=== PATIENT | female | born 1955 | race Caucasian/White ===

== ENCOUNTER 2016-10-07 10:43 | Inpatient (IN) | payer OTHER ==
[~2016-10-07] VITALS: Ht 160 cm; Wt 64.9 kg
--- NOTE | 2016-10-07 10:55 | NUR ---
PAIGE CAMACHO FROM [facility]: EATING CANNABIS COOKIE, LETHARGIC. SKIN IS WARM AND DRY. PLACED ON MONITOR. RESP IS EVEN AND UNLABORED WITH NAD NOTED. AWAITING MD FOR EVAL.
[2016-10-07 11:03] LABS: BASOPHILS % (AUTO) 0.6 % (0.0-2.0); EOSINOPHILS # (AUTO) 0.1 /CMM (0.0-0.7); EOSINOPHILS % (AUTO) 1.6 % (0.0-6.0); HEMATOCRIT 39 % (33-45); LYMPHOCYTES # (AUTO) 1.8 /CMM (0.8-4.8); LYMPHOCYTES % (AUTO) 26.3 % (20.0-44.0); MEAN CORPUSCULAR HEMOGLOBIN 29 PG (26.0-33.0); MEAN CORPUSCULAR HGB CONC 33 g/dl (31.0-36.0); MEAN CORPUSCULAR VOLUME 88 fL (82-100); MONOCYTES # (AUTO) 0.6 /CMM (0.1-1.30); MONOCYTES % (AUTO) 8.4 % (2.0-12.0); NEUTROPHILS # (AUTO) 4.2 /CMM (1.8-8.9); NEUTROPHILS % (AUTO) 63.1 % (43.0-81.0); PLATELET COUNT (AUTO) 293 /CMM (150-450); RDW COEFFICIENT OF VARIATION 16.8 (11.5-15.0); RED BLOOD CELL COUNT(AUTO) 4.48 MIL/uL (4.0-5.2); WHITE BLOOD COUNT (AUTO) 6.7 K/uL (4.3-11.0)
[2016-10-07 11:15] LABS: ALBUMIN 3.4 g/dL (3.4-5.0); BILIRUBIN,DIRECT 0.1 mg/dL (0.0-0.2); BILIRUBIN,TOTAL 0.3 mg/dL (0.2-1.0); CALCIUM, SERUM 9.7 mg/dL (8.5-10.1); POTASSIUM 4.2 mmol/L (3.5-5.1); TOTAL PROTEIN, SERUM 7.3 g/dL (6.4-8.2)
--- NOTE | 2016-10-07 11:30 | NUR ---
urine obtained sent to the lab.
--- NOTE | 2016-10-07 11:32 | NUR ---
URINE OBTAINED CALLED LAB FOR PICKUP
[2016-10-07 11:36] LABS: APPEARANCE,URINE Turbid (CLEAR); BLOOD, URINE Small Ery/uL (NEGATIVE); COLOR,URINE Yellow (YELLOW); KETONES,URINE Trace (NEGATIVE); LEUKOCYTE ESTERASE ,URINE Small (NEGATIVE); NITRITE, URINE Positive (NEGATIVE); PROTEIN,URINE 100 mg/dl (NEGATIVE); UGLUCOSE Negative (NEGATIVE)
[2016-10-07 11:39] LABS: BILIRUBIN,URINE SMALL (NEGATIVE)
[2016-10-07 11:45] LABS: ADD URINE CULTURE YES; BACTERIA,URINE Many /HPF (None Seen); RBC,URINE 0-2 /HPF (0-2); SQUAMOUS EPITHELIAL CELL,UR Moderate /HPF (None Seen); URINE AMORPHOUS URATE Few /HPF (None Seen); WBC,URINE 51-80 /HPF (0-3)
--- NOTE | 2016-10-07 12:17 | NUR ---
CALLED [facility], SPOKE WITH KEYON, TRANSFERRED CALL TO
--- NOTE | 2016-10-07 12:30 | NUR ---
Patient transported for CT head via gurney. Patient remains in stable condition at .
[2016-10-07] MEDS ORDERED: CEFTRIAXONE 1GM BAG (ER ONLY) 1 GM/50 ML PIGGYBACK IV ONE (13:00)
--- NOTE | 2016-10-07 14:15 | NUR ---
CALLED [facility], ASKED FOR KEYON, TRANSFERRED CALL TO
--- NOTE | 2016-10-07 14:18 | NUR ---
EPIC PAGED, SPECIAL WEAPONS UNIT OFFICER
--- NOTE | 2016-10-07 14:20 | NUR ---
CALLED NURSING SUP. FOR TELE BED
[2016-10-07] MEDS ORDERED: MULT-1168 PO (14:28)
--- NOTE | 2016-10-07 14:29 | NUR ---
Patient is resting comfortably in bed with eyes closed. Easily aroused. VSS PATIENT IS AAOX1
[2016-10-07] MEDS ORDERED: DOCU-25 PO (14:31)
[2016-10-07] MEDS ORDERED: FLUO40CA49 PO (14:31)
[2016-10-07] MEDS ORDERED: TIZA4TAB4 PO (14:31)
[2016-10-07] MEDS ORDERED: PREG100C PO (14:31)
[2016-10-07] MEDS ORDERED: WARF5TAB6 PO (14:31)
[2016-10-07] MEDS ORDERED: BACL20TA PO ×2 (14:31)
[2016-10-07] MEDS ORDERED: ALEN70TA45 PO (14:31)
[2016-10-07] MEDS ORDERED: PANT40TA4 PO (14:31)
--- NOTE | 2016-10-07 15:02 | NUR ---
REPORT GIVEN TO ISRA WISE FOR PRIETO TELE [phone]
--- NOTE | 2016-10-07 15:45 | NUR ---
TELE ADMIT FROM ER AFTER REPORT RECEIVED FROM BATSHEVA RN. PATIENT ORIENTED TO PRIMARY RN, UNIT, ROOM, BED, AND UNIT POLICIES REGARDING PATIENT CARE AND VISITING HOURS. PATIENT NOW ON CONTINUOUS TELEMETRY MONITORING. READING ON ARRIVAL IS SB 55. PT WEIGHED BY BED SCALE AND ENCOURAGED TO CALL IF SHE NEEDS ANYTHING. ALL QUESTIONS AND CONCERNS ADDRESSED, PATIENT VERBALIZED UNDERSTANDING.
[2016-10-07] MEDS ORDERED: ACETAMINOPHEN 325 MG TABLET PO PRN (16:00)
[2016-10-07] MEDS ORDERED: MAG HYDROX/AL HYDROX/SIMETH 30 ML UDC PO PRN (16:00)
[2016-10-07] MEDS ORDERED: MAGNESIUM HYDROXIDE 30 ML UDC PO PRN (16:00)
[2016-10-07] MEDS ORDERED: ONDANSETRON HCL/PF 4 MG/2 ML VIAL IVP PRN (16:00)
[2016-10-07] MEDS ORDERED: ZOLPIDEM TARTRATE 5 MG TABLET PO PRN (16:00)
[2016-10-07] MEDS ORDERED: Z GUARD REMEDY 2 OZ OINT TP PRN (16:00)
[2016-10-07] MEDS ORDERED: IV SET PRIMARY PUMP SET 1 EA INFUS.SET MC ONE (16:14)
[2016-10-07] MEDS: PREGABALIN 100 MG CAPSULE PO SCH (16:45)
[2016-10-07] MEDS: IV D5/0.45 NACL 1,000 ML IV PRN (16:45)
[2016-10-07] MEDS: ENOXAPARIN SODIUM 40 MG/0.4 ML DISP.SYRIN SQ SCH (16:49)
[2016-10-07 17:06] LABS: INR 1.74 (0.87-1.13); PROTHROMBIN TIME 19.3 SECS (9.5-12.7)
[2016-10-07 17:27] LABS: PHENCYCLIDINE SCREEN,URINE NEGATIVE (NEGATIVE)
[2016-10-07 17:44] LABS: CANNABINOID, URINE POSITIVE (NEGATIVE)
[2016-10-07] MEDS ORDERED: SECONDARY IV SET 1 EA INFUS.SET MC ONE (18:27)
[2016-10-07] MEDS: CEFTRIAXONE 1 G in IV D5W 50 ML IV SCH (18:32)
--- NOTE | 2016-10-07 18:39 | NUR ---
CHANGE OF SHIFT REPORT PT RESTING COMFORTABLY IN BED. NO S/S OR C/O PAIN OR DISTRESS NOTED. SIDE RAILS UP X2, CALL LIGHT LEFT WITHIN REACH. PT KEPT CLEAN, DRY, AND COMFORTABLE. NO SIGNIFICANT CHANGES SINCE ADMISSION. WILL GIVE REPORT TO GRAHAM DHALIWAL.
--- NOTE | 2016-10-07 19:10 | NUR ---
TELE/ENERGY SALES BROKER; RECEIVED PT. IN BED SLEEPING. BREATHING NON LABORED. WITH O2 2L NC ON. ON TELEMETRY. IVF ON PROGRESS ON LAC. FC INTACT WITH CLEAR YELLOW URINE IN TUBING. NO S/S OF DISTRESS. CONTINUE TO MONITOR. CALL LIGHT WITHIN REACH. BED ON LOWER POSITION AND LOCKED FOR SAFETY. SIDE RAILS ARE UP FOR SAFETY.
[2016-10-07 19:19] VITALS: BP 149/71
[2016-10-07 20:00] VITALS: BP 130/73
[2016-10-08] VITALS (7 sets, daily range): BP systolic 127–148; BP diastolic 73–93
[2016-10-08] MEDS: HYDROCODONE/APAP 5/325MG 1 EACH TABLET PO PRN (03:19)
[2016-10-08] MEDS: IV D5/0.45 NACL 1,000 ML IV PRN ×2 (05:45→17:35)
--- NOTE | 2016-10-08 05:54 | NUR ---
RN NOTES COVERING FOR YESIKA FORENSIC PSYCHOLOGIST: PATIENT COMPLAIN OF NAUSEA, ADMINISTERED ZOFRAN PRN ORDERED.
[2016-10-08 06:29] LABS: BASOPHILS % (AUTO) 0.8 % (0.0-2.0); EOSINOPHILS # (AUTO) 0.2 /CMM (0.0-0.7); EOSINOPHILS % (AUTO) 3.1 % (0.0-6.0); HEMATOCRIT 37 % (33-45); LYMPHOCYTES # (AUTO) 1.3 /CMM (0.8-4.8); LYMPHOCYTES % (AUTO) 21.3 % (20.0-44.0); MEAN CORPUSCULAR HEMOGLOBIN 29 PG (26.0-33.0); MEAN CORPUSCULAR HGB CONC 33 g/dl (31.0-36.0); MEAN CORPUSCULAR VOLUME 89 fL (82-100); MONOCYTES # (AUTO) 0.6 /CMM (0.1-1.30); MONOCYTES % (AUTO) 9.9 % (2.0-12.0); NEUTROPHILS % (AUTO) 64.9 % (43.0-81.0); PLATELET COUNT (AUTO) 271 /CMM (150-450); RDW COEFFICIENT OF VARIATION 16.4 (11.5-15.0); RED BLOOD CELL COUNT(AUTO) 4.14 MIL/uL (4.0-5.2); WHITE BLOOD COUNT (AUTO) 6.1 K/uL (4.3-11.0)
[2016-10-08 06:44] LABS: CALCIUM, SERUM 8.7 mg/dL (8.5-10.1); CREATININE 0.4 mg/dL (0.6-1.3); MAGNESIUM 1.8 mg/dL (1.8-2.4); PHOSPHORUS 3.9 mg/dL (2.5-4.9)
--- NOTE | 2016-10-08 07:00 | NUR ---
MS/BLEND PLANT OPERATOR; SLEPT SHORT INTERVALS. BREATHING NON LABORED. FC INTACT. WILL ENDORSE TO THE DAY SHIFT RN FOR PRIETO.
--- NOTE | 2016-10-08 07:30 | NUR ---
LIFE INSURANCE SALESPERSON AM NOTES PT. IN BED,AAO X 2, CONFUSED, WITH O2 2L NC, NAD NO SOB, ON TELEMETRY, SB HR 58, NO C/O PAIN OR CHEST DISCOMFORT. IVF IN PROGRESS ON LAC G20. FC INTACT WITH CLEAR YELLOW URINE OUTPUT, ADEQUATE. BED REST, SEE NURSING FLOWSHEET FOR SKIN ISSUES, CARDIAC DIET, CALL LIGHT WITHIN REACH. BED ON LOW/LOCKED. SIDE RAILS UPX 2, WILL CONT TO MONITOR. Addendum: 10/08/16 at 0811 by MARICARMEN ZEPEDA RN ADDENDUM: ON TELEMETRY, SB HR 57, DENIES CHEST PAIN/DISCOMFORT.
[2016-10-08] MEDS: DOCUSATE SODIUM 100 MG CAPSULE PO SCH (08:58)
[2016-10-08] MEDS: PREGABALIN 100 MG CAPSULE PO SCH ×3 (08:58→16:48)
[2016-10-08] MEDS: FLUOXETINE HCL 20 MG CAPSULE PO SCH (08:59)
[2016-10-08] MEDS: PANTOPRAZOLE 40 MG TABLET.DR PO SCH (08:59)
[2016-10-08] MEDS: WARFARIN SODIUM 5 MG TABLET PO SCH (09:01)
--- NOTE | 2016-10-08 09:30 | NUR ---
RN NOTES ADMINISTERED DUE MEDS.
[2016-10-08] MEDS: CEFTRIAXONE 1 G in IV D5W 50 ML IV SCH (16:48)
--- NOTE | 2016-10-08 16:48 | NUR ---
RN NOTES STARTED ROCEPHIN IV. INFUSING WELL.
--- NOTE | 2016-10-08 18:20 | NUR ---
RN CLOSING NOTES PT. RESTING IN BED, AAO X 2, CONFUSED, WITH O2 2L NC, NAD NO SOB, NO C/O PAIN OR CHEST DISCOMFORT. IVF IN PROGRESS ON LAC G20. FC INTACT WITH CLEAR YELLOW URINE OUTPUT, 1500 ML. BED REST, ON CARDIAC DIET, CALL LIGHT WITHIN REACH. BED ON LOW/LOCKED. SIDE RAILS UPX 2, ALL NEEDS MET. NO OTHER SIGNIFICANT CHANGE IN CONDITION. WILL ENDORSE TO NEXT SHIFT FOR PRIETO.
--- NOTE | 2016-10-08 19:30 | NUR ---
MS RN NOTE PATIENT AWAKE AND ALERT IN BED. DENIES ANY PAIN OR DISCOMFORT AT THIS TIME. MAIER CATHETER IN PLACE, WITH CLEAR YELLOW URINE DRAINING TO COLLECTION BAG. IV SITE INTACT WITH NO REDNESS NOTED. BED LOCKED AND IN LOWEST POSITION. WILL CONTINUE TO MONITOR.
[2016-10-08] MEDS: ENOXAPARIN SODIUM 40 MG/0.4 ML DISP.SYRIN SQ SCH (21:25)
--- NOTE | 2016-10-09 06:11 | NUR ---
MS RN NOTE PATIENT ASLEEP IN BED. NORMAL RISE AND FALL OF CHEST. NO DISCOMFORT NOTED. MAIER CATHETER INTACT, WITH 800ML OF CLEAR YELLOW URINE IN COLLECTION BAG. ALL NEEDS MET AND ATTENDED TO. WILL ENDORSE TO DAY SHIFT FOR PRIETO.
[2016-10-09 08:00] VITALS: BP 136/70
--- NOTE | 2016-10-09 08:00 | NUR ---
MS RN AM NOTES PATIENT AWAKE AND ALERT IN BED. DENIES ANY PAIN OR DISCOMFORT AT THIS TIME. MAIER CATHETER IN PLACE, WITH CLEAR YELLOW URINE DRAINING TO COLLECTION BAG. IV SITE INTACT WITH NO REDNESS NOTED WITH ONGOING IVF OF D51/2 NS AT 75 ML/HR INFUSING WELL. BED LOCKED AND IN LOWEST POSITION. WILL CONTINUE TO MONITOR.
[2016-10-09] MEDS: HYDROCODONE/APAP 5/325MG 1 EACH TABLET PO PRN (08:46)
[2016-10-09] MEDS: PANTOPRAZOLE 40 MG TABLET.DR PO SCH (08:46)
[2016-10-09] MEDS: DOCUSATE SODIUM 100 MG CAPSULE PO SCH (08:46)
[2016-10-09] MEDS: FLUOXETINE HCL 20 MG CAPSULE PO SCH (08:46)
[2016-10-09] MEDS: IV D5/0.45 NACL 1,000 ML IV PRN (09:15)
[2016-10-09] MEDS: PREGABALIN 100 MG CAPSULE PO SCH ×3 (09:17→17:00)
[2016-10-09] MEDS ORDERED: SULF1TAB48 PO (09:53)
--- NOTE | 2016-10-09 13:42 | NUR ---
WOUND CARE CONSULT: PT PRESENTS WITH PINK/RED AREAS TO RT ANTERIOR THIGH, PRESENT ON ADMISSION. NO BLISTERING OR DRAINAGE NOTED. SCAR NOTED TO RT HEEL. PT ON ISOFLEX LOW AIRLOSS BED. PT TO BE TURNED AND REPOSITIONED EVERY 2 HRS PT CONDITION PERMITS, HEELS FLOATED. TAHMINA SCORE IS 16. ALL SKIN PROTECTION MEASURES IN PLACE. WILL SEE PRN. MACDONALD IN AGREEMENT WITH PLAN OF CARE. Addendum: 10/09/16 at 1344 by PEGGY CALVO WNDNU Amended: Links added.
[2016-10-09 16:00] VITALS: BP_SYST 128; BP_DIAS 72; BP_DIAS 77
[2016-10-09] MEDS: CEFTRIAXONE 1 G in IV D5W 50 ML IV SCH (16:52)
--- NOTE | 2016-10-09 16:53 | NUR ---
ROCEPHIN NOT GIVEN-PT'S IV H/L WAS ALREADY BEEN REMOVED DUE TO BEING DISCHARGED.AWAITING FOR AMBULANCE ENGINEERING PROGRAM MANAGER BETWEEN 5-530PM.PT IS ON ORAL ATB UPON DISCHARGE.
[2016-10-09] MEDS: WARFARIN SODIUM 5 MG TABLET PO SCH (17:00)
--- NOTE | 2016-10-09 18:00 | NUR ---
PT IS FOR DISCHARGE AND STILL AWAITING FOR AMBULANCE TO BE PICKED UP.PT DENIES PAIN OR DISTRESS WITH STABLE V/S. ENDORSED TO NIGHT NURSE CARE.
--- NOTE | 2016-10-09 19:59 | NUR ---
MS RN NOTE PATIENT DISCHARGED TO [facility] IN STABLE CONDITION. TRANSPORTED BY AMBULANCE WITH ALL BELONGINGS. ID BAND AND IV REMOVED. ALL DISCHARGE INSTRUCTIONS EXPLAINED TO PATIENT. HARD COPY OF PRESCRIPTION GIVEN TO AMBULANCE PERSONELLE WITH ALL DISCHARGE PAPERS.
[2016-10-09 20:39] VITALS: BP 149/80
== END 2016-10-09 20:00 | DRG 917 ==
LOC: ER 10:46 → TELE 15:07 → MED 10-08 10:43
PROVIDERS: ADMIT Internal Medicine; ATTEND Internal Medicine
DX: T42.6X1A Poisoning by other antiepileptic and sedative-hypnotic drugs, accidental (unintentional), initial encounter (principal); G93.41 Metabolic encephalopathy; N39.0 Urinary tract infection, site not specified; Y92.122 Bedroom in nursing home as the place of occurrence of the external cause; G35 Multiple sclerosis; F12.20 Cannabis dependence, uncomplicated; K21.9 Gastro-esophageal reflux disease without esophagitis; Y92.9 Unspecified place or not applicable; B96.20 Unspecified Escherichia coli [E. coli] as the cause of diseases classified elsewhere; I10 Essential (primary) hypertension; Z99.3 Dependence on wheelchair
CPT/HCPCS: 36415; 70450-TC; 71010-TC; 80048-TC; 80061-TC; 80076-TC; 80305; 81000-TC; 83605-TC; 83735-TC; 84100-TC; 85025-TC; 85610-TC; 87040-TC; 87081-TC; 87086-TC; 87186-TC; A4606; J0696; J1650; J2405; J3490; J7060; Z7610

== ENCOUNTER 2017-06-22 14:53 | Inpatient (IN) | payer OTHER ==
[~2017-06-22] VITALS: Ht 157.5 cm; Wt 62.6 kg
[~2017-06-22 14:53] MED LIST: ALEN70TA45 PO; BACL20TA PO; DOCU-25 PO; FLUO40CA49 PO; MULT-1168 PO; PANT40TA4 PO; PREG100C PO; SULF1TAB48 PO; TIZA4TAB4 PO; WARF5TAB6 PO
--- NOTE | 2017-06-22 14:53 | NUR ---
BB PA FROM LONG-TERM C/O FEVER PER PT "SAME SYMPTOM MY PREVIOUS UTI". NAD NOTED. PT AAO X3, RR EVEN AND UNLABORED. BP LOW AT THIS TIME. PT PLACED TRENDELENBERG WITH MD AT BEDSIDE FOR EVAL.
[2017-06-22] MEDS ORDERED: PRAM0.253 PO (15:10)
[2017-06-22 15:20] LABS: BASOPHILS # (AUTO) 0.1 /CMM (0.0-0.2); BASOPHILS % (AUTO) 1.5 % (0.0-2.0); EOSINOPHILS % (AUTO) 0.2 % (0.0-6.0); HEMATOCRIT 37 % (33-45); HEMOGLOBIN 12.5 g/dL (11.5-14.8); LYMPHOCYTES # (AUTO) 0.8 /CMM (0.8-4.8); LYMPHOCYTES % (AUTO) 9.6 % (20.0-44.0); MEAN CORPUSCULAR HEMOGLOBIN 31 PG (26.0-33.0); MEAN CORPUSCULAR HGB CONC 34 g/dl (31.0-36.0); MEAN CORPUSCULAR VOLUME 90 fL (82-100); MONOCYTES # (AUTO) 0.6 /CMM (0.1-1.30); MONOCYTES % (AUTO) 7.4 % (2.0-12.0); NEUTROPHILS # (AUTO) 6.7 /CMM (1.8-8.9); NEUTROPHILS % (AUTO) 81.3 % (43.0-81.0); PLATELET COUNT (AUTO) 299 /CMM (150-450); RDW COEFFICIENT OF VARIATION 12.8 (11.5-15.0); WHITE BLOOD COUNT (AUTO) 8.2 K/uL (4.3-11.0)
[2017-06-22 15:30] LABS: CARBON DIOXIDE 29 mmol/L (21-32); CHLORIDE 96 mmol/L (98-107); CREATININE 0.5 mg/dL (0.6-1.3); GLUCOSE 117 mg/dL (74-106); POTASSIUM 3.8 mmol/L (3.5-5.1); SODIUM SERUM 131 mmol/L (136-145); UREA NITROGEN, BLOOD 8 mg/dL (7-18)
[2017-06-22] MEDS ORDERED: IV NS 0.9% 1,000 ML BAG IV ONE ×2 (15:30→16:30)
[2017-06-22 15:33] LABS: PROTHROMBIN TIME 48.1 SECS (9.5-12.7)
[2017-06-22 15:35] LABS: ALANINE AMINOTRANSFERASE 21 U/L (12-78); ALKALINE PHOSPHATASE 80 U/L (46-116); ASPARTATE AMINOTRANSFERASE 24 U/L (15-37); BILIRUBIN,DIRECT 0.1 mg/dL (0.0-0.2); BILIRUBIN,TOTAL 0.5 mg/dL (0.2-1.0)
[2017-06-22 15:37] LABS: INR 4.63 (0.87-1.13); TROPONIN I < 0.017 ng/mL (0.00-0.056)
[2017-06-22 16:07] LABS: APPEARANCE,URINE Turbid (CLEAR); BILIRUBIN,URINE Negative (NEGATIVE); BLOOD, URINE Large Ery/uL (NEGATIVE); COLOR,URINE Yellow (YELLOW); KETONES,URINE Negative (NEGATIVE); LEUKOCYTE ESTERASE ,URINE Large (NEGATIVE); NITRITE, URINE Positive (NEGATIVE); PH,URINE 7.5 (5.0-8.0); PROTEIN,URINE 30 mg/dl (NEGATIVE); UGLUCOSE Negative (NEGATIVE); UROBILINOGEN,URINE 0.2 EU/dL (0.2)
[2017-06-22 16:17] LABS: BACTERIA,URINE Moderate /HPF (None Seen); SQUAMOUS EPITHELIAL CELL,UR Few /HPF (None Seen); WBC,URINE 80-100 /HPF (0-3)
[2017-06-22] MEDS ORDERED: CEFTRIAXONE 1 G in IV D5W 50 ML IV ONE (16:30)
[2017-06-22] MEDS ORDERED: HYDROCODONE/APAP 10/325MG 1 EA TABLET PO PRN (17:00)
[2017-06-22] MEDS ORDERED: ONDANSETRON HCL/PF 4 MG/2 ML VIAL IVP PRN (17:00)
[2017-06-22] MEDS ORDERED: MAG HYDROX/AL HYDROX/SIMETH 30 ML UDC PO PRN (17:00)
[2017-06-22] MEDS ORDERED: MAGNESIUM HYDROXIDE 30 ML UDC PO PRN (17:00)
[2017-06-22] MEDS ORDERED: ENOXAPARIN SODIUM 40 MG/0.4 ML DISP.SYRIN SQ SCH (17:00)
[2017-06-22] MEDS ORDERED: TEMAZEPAM 15 MG CAPSULE PO PRN (17:00)
--- NOTE | 2017-06-22 17:21 | NUR ---
BP IMPROVED AT THIS TIME. VSS. PT STABLE
--- NOTE | 2017-06-22 18:10 | NUR ---
RN INITIAL NOTE PATIENT RECEIVED IN BED AWAKE, ALERT AND ORIENTED. ABLE TO MAKE NEEDS KNOWN. PATIENT IS SINUS RHYTHM ON TELE MONITOR. HEART RATE 76. NO S/S OF RESPIRATORY DISTRESS OR SOB. SATING WELL ON ROOM. SKIN IS WARM AND DRY TO TOUCH. IV SITE FLUSHED, PATENT. CALL LIGHT AND BELONGINGS WITHIN EASY REACH. WILL CONTINUE TO MONITOR.
[2017-06-22 18:15] VITALS: BP 150/87
[2017-06-22] MEDS: PRAMIPEXOLE DI-HCL 0.25 MG TABLET PO SCH (18:55)
[2017-06-22] MEDS: PREGABALIN 100 MG CAPSULE PO SCH (18:56)
[2017-06-22] MEDS: BACLOFEN (10 MG) 10 MG TABLET PO SCH (18:56)
[2017-06-22] MEDS: TIZANIDINE HCL 4 MG TABLET PO SCH (18:56)
--- NOTE | 2017-06-22 19:27 | NUR ---
TELE CLOSING NOTE PATIENT IS ALERT, ORIENTED X4, NO S/S OF DISTRESS NOTED, NO S/S OF PAIN NOTED, CALL LIGHT WITHIN REACH, ALL NEEDS ATTENDED
[2017-06-22 20:00] VITALS: BP 129/56
--- NOTE | 2017-06-22 20:00 | NUR ---
OSMANY RN NOTES RECEIVED PTS ON BED AWAKE ALERT ORIENTED X3 ON ROOM AIR SATING 95% ON TELE SR ON THE MONITOR, NO SOB NO DISTRESS NO C/O OF PAIN NOTED AT OF THIS TIME. V/S STABLE AFEBRILE, ALL NEEDS ATTENDED TOO , CALL LIGHT WITHIN REACH .ALL MEDS GIVEN ORDERED KEPT PTS CLEAN AND DRY AND COMFORTABLE, WILL CONTINUE TO MONITOR PTS.
[2017-06-22] MEDS: ACETAMINOPHEN 325 MG TABLET PO PRN (21:02)
[2017-06-23] VITALS: BP 138/72
--- NOTE | 2017-06-23 | NUR ---
OSMANY DHALIWAL NOTES PTS ON IVF OF NS AT 100CC/HR IN PROGRESS. IVF OF L WRIST INTACT AND PATENT. Addendum: 06/23/17 at 0456 by SHAGUFTA FLORES RN IV HL ON LEFT WRIST INTACT AND PATENT
[2017-06-23] MEDS: IV NS 0.9% 1,000 ML IV PRN ×3 (00:01→21:22)
[2017-06-23 04:00] VITALS: BP 160/77
--- NOTE | 2017-06-23 04:25 | NUR ---
OSMANY RN NOTES NORCO GIVEN C/O HEADACHE, WITH RELIEF
[2017-06-23] MEDS: HYDROCODONE/APAP 5/325MG 1 EACH TABLET PO PRN (04:29)
--- NOTE | 2017-06-23 06:51 | NUR ---
OSMANY RN NOTES PTS ON BED AWAKE AND RESPONSIVE , NO SIGNIFICANT CHANGED NOTED WILL ENDORSE TO RN DAY SHIFT FOR CONTINUITY OF CARE.
[2017-06-23 07:30] LABS: BASOPHILS % (AUTO) 0.5 % (0.0-2.0); EOSINOPHILS % (AUTO) 0.1 % (0.0-6.0); HEMATOCRIT 36 % (33-45); HEMOGLOBIN 12.4 g/dL (11.5-14.8); LYMPHOCYTES # (AUTO) 0.9 /CMM (0.8-4.8); MEAN CORPUSCULAR HEMOGLOBIN 31 PG (26.0-33.0); MEAN CORPUSCULAR HGB CONC 34 g/dl (31.0-36.0); MEAN CORPUSCULAR VOLUME 91 fL (82-100); MONOCYTES # (AUTO) 0.7 /CMM (0.1-1.30); MONOCYTES % (AUTO) 9.2 % (2.0-12.0); NEUTROPHILS # (AUTO) 6.1 /CMM (1.8-8.9); NEUTROPHILS % (AUTO) 78.2 % (43.0-81.0); PLATELET COUNT (AUTO) 248 /CMM (150-450); RDW COEFFICIENT OF VARIATION 13.5 (11.5-15.0); RED BLOOD CELL COUNT(AUTO) 3.99 MIL/uL (4.0-5.2); WHITE BLOOD COUNT (AUTO) 7.8 K/uL (4.3-11.0)
--- NOTE | 2017-06-23 07:37 | NUR ---
RN OPENING NOTE RECEIVED PATIENT IN BED, ALERT/ORIENTED, NO DISTRESS NOTED, PATIENT IS AWAKE. SIDE RAILS UP X 2, CALL LIGHT WITHIN REACH, WILL CONTINUE TO MONITOR
[2017-06-23 07:47] LABS: THYROID STIMULATING HORMONE 1.296 uIU/mL (0.358-3.74)
[2017-06-23 07:50] LABS: INR 3.12 (0.87-1.13); PROTHROMBIN TIME 32.8 SECS (9.5-12.7)
[2017-06-23 08:00] VITALS: BP 132/66
[2017-06-23 08:01] LABS: CALCIUM, SERUM 8.4 mg/dL (8.5-10.1); CREATININE 0.4 mg/dL (0.6-1.3); MAGNESIUM 1.8 mg/dL (1.8-2.4); PHOSPHORUS 2.5 mg/dL (2.5-4.9); POTASSIUM 3.2 mmol/L (3.5-5.1)
[2017-06-23] MEDS: FLUOXETINE HCL 20 MG CAPSULE PO SCH (08:48)
[2017-06-23] MEDS: PRAMIPEXOLE DI-HCL 0.25 MG TABLET PO SCH ×2 (08:48→17:40)
[2017-06-23] MEDS: BACLOFEN (10 MG) 10 MG TABLET PO SCH ×3 (08:49→17:40)
[2017-06-23] MEDS: DOCUSATE SODIUM 100 MG CAPSULE PO SCH (08:49)
[2017-06-23] MEDS: PREGABALIN 100 MG CAPSULE PO SCH ×3 (08:50→17:39)
[2017-06-23] MEDS: TIZANIDINE HCL 4 MG TABLET PO SCH ×3 (08:50→17:42)
[2017-06-23] MEDS: POTASSIUM CHLORIDE 20 MEQ TAB.PRT.SR PO SCH ×2 (12:06→12:25)
[2017-06-23] MEDS ORDERED: POTASSIUM CHLORIDE 20 MEQ TAB.PRT.SR PO ONE (12:30)
--- NOTE | 2017-06-23 13:45 | NUR ---
rn note Performed skin assessmen, no redness on the back (sacral area ) noted
[2017-06-23 16:00] VITALS: BP 136/70
[2017-06-23] MEDS: CEFTRIAXONE 1 G in IV D5W 50 ML IV SCH (17:39)
[2017-06-23] MEDS: WARFARIN SODIUM 5 MG TABLET PO SCH (17:41)
--- NOTE | 2017-06-23 19:20 | NUR ---
[employer] [employer] CLOSING NOTE PATIENT IS IN STABLE CONDITION. ALL NEEDS WERE MET. CALL LIGHT IS WITHIN REACH. IN NO APPARENT DISTRESS. PATIENT IS AWAKE. BEDSIDE RAILS ARE UP X2. BED IS LOCKED AND LOWERED. WILL ENDORSE CARE TO [employer] DRIVER NURSE .
[2017-06-23 19:51] VITALS: BP 126/63
--- NOTE | 2017-06-23 19:53 | NUR ---
MS 1 RN NOTE PT IN BED SUPINE, A/A/O X 3, NO SOB, NO DISTRESS OR DISCOMFORT NOTED. DENIES PAIN. IVF NS @ 100 ML/HR INFUSING WELL, NO S/S OF INFILTRATION NOTED ON LT WRIST #18 G. SITTER AT BED SIDE. SIDE RAILS UP X 2 AND CALL LIGHT WITHIN REACH. BED ALARM ON. CONTINUE TO MONITOR HER.
--- NOTE | 2017-06-24 01:35 | NUR ---
MS 1 RN NOTE PT C/O HEADACHE 09/29, TYLENOL 650 MG PO GIVEN. CONTINUE TO MONITOR HER.
[2017-06-24] MEDS: ACETAMINOPHEN 325 MG TABLET PO PRN ×2 (01:36→17:32)
--- NOTE | 2017-06-24 02:35 | NUR ---
MS 1 RN NOTE PT IN BED FALL ASLEEP, AROUSABLE. HEADACHE SUBSIDED 08/01. CONTINUE TO MONITOR HER.
[2017-06-24 05:03] VITALS: BP 146/77
--- NOTE | 2017-06-24 06:47 | NUR ---
MS 1 RN NOTE PT IN BED AWAKE. NO DISTRESS OR DISCOMFORT NOTED. SITTER AT BED SIDE. ALL NEEDS ATTENDED. SIDE RAILS UP X 3 AND CALL LIGHT WITHIN REACH. WILL ENDORSE TO DAY SHIFT NURSE FOR CONTINUE TO CARE.
[2017-06-24 07:23] LABS: INR 2.01 (0.87-1.13)
[2017-06-24] MEDS ORDERED: ALENDRONATE 70 MG TABLET PO SCH (07:30)
--- NOTE | 2017-06-24 07:30 | NUR ---
RN NOTE:(INITIAL) PATIENT RECEIVED IN STABLE CONDITION ALERT AWAKE ORIENTED X3. ON OXYGEN 2LPM VIA NC, BREATHING PATTERN REGULAR & UNLABORED. NO ACUTE DISTRESS NOTED.DENIES PAIN & DISCOMFORT. IV SITE INTACT, ABLE TO FLUSH WITHOUT DIFFICULTY. RUNNING WELL WITH IV FLUIDS ORDERED. MAIER CATHETER INTACT, DRAINING WELL WITH GRAVITY. SAFETY MEASURES OBSERVED. CALL LIGHT WITHIN REACH. WILL CONTINUE TO MONITOR.
[2017-06-24 07:35] LABS: CALCIUM, SERUM 8.6 mg/dL (8.5-10.1); CREATININE 0.3 mg/dL (0.6-1.3); POTASSIUM 3.6 mmol/L (3.5-5.1)
[2017-06-24 08:00] VITALS: BP 139/82
[2017-06-24] MEDS: PREGABALIN 100 MG CAPSULE PO SCH ×3 (08:27→17:24)
[2017-06-24] MEDS: TIZANIDINE HCL 4 MG TABLET PO SCH ×3 (08:27→17:24)
[2017-06-24] MEDS: BACLOFEN (10 MG) 10 MG TABLET PO SCH ×3 (08:27→17:24)
[2017-06-24] MEDS: PRAMIPEXOLE DI-HCL 0.25 MG TABLET PO SCH ×2 (08:27→17:24)
[2017-06-24] MEDS: DOCUSATE SODIUM 100 MG CAPSULE PO SCH (08:27)
[2017-06-24] MEDS: FLUOXETINE HCL 20 MG CAPSULE PO SCH (08:27)
[2017-06-24] MEDS: IV NS 0.9% 1,000 ML IV PRN (08:28)
[2017-06-24 16:00] VITALS: BP 142/72
[2017-06-24] MEDS: CEFTRIAXONE 1 G in IV D5W 50 ML IV SCH (17:23)
[2017-06-24] MEDS: WARFARIN SODIUM 5 MG TABLET PO SCH (17:25)
--- NOTE | 2017-06-24 18:30 | NUR ---
RN NOTE: PATIENT REMAIN STABLE DURING SHIFT. NO SIGNIFICANT CHANGES NOTED. SAFETY MEASURES OBSERVED. WILL ENDORSE TO PM SHIFT RN FOR CONTINUITY OF CARE.
[2017-06-24 20:00] VITALS: BP 142/74
[2017-06-25] MEDS: HYDROCODONE/APAP 5/325MG 1 EACH TABLET PO PRN ×2 (00:08→09:06)
[2017-06-25 04:00] VITALS: BP 149/74
--- NOTE | 2017-06-25 07:15 | NUR ---
RN NOTES RECEIVED PT ON BED, A/Ox4, RESPIRATION EVEN AND UNLABORED, TRISTON ANY DISTRESS, ON RA , MAIER DRAINING TO GRAVITY WITH YELLOW CLEAR URINE, L WRIST IV SIT G 18 , CDI, SR UP x3, CALL LIGHT WITHIN EASY REACH, BED LOCKED AND IN LOWEST POSITION , CONTINUE TO MONITOR PT CLOSELY.
[2017-06-25 08:00] VITALS: BP_SYST 159; BP_SYST 172; BP_DIAS 90; BP_DIAS 92
--- NOTE | 2017-06-25 08:56 | NUR ---
WOUND CARE CONSULT: PT PRESENTS WITH RT HEEL DEEP TISSUE INJURY WHICH IS INTACT AND LEFT HEEL SMALL DRY ESCHAR, PRESENT ON ADMISSION. PT REPORTS HAS HAD THESE HEEL WOUNDS FOR SOME TIME AND THAT THEY ARE TREATED BY HOME HEALTH. RECOMMENDATIONS MADE FOR SKIN PROTECTION AND DISCUSSED WITH NURSING STAFF. PT ON MARTIN ISOFLEX LOW AIRLOSS BED. WILL SEE PRN. MACDONALD IN AGREEMENT WITH PLAN OF CARE. Addendum: 06/25/17 at 0858 by PEGGY CALVO WNDNU Amended: Links added.
[2017-06-25] MEDS ORDERED: Z GUARD REMEDY 2 OZ OINT TP PRN (09:00)
[2017-06-25] MEDS: PRAMIPEXOLE DI-HCL 0.25 MG TABLET PO SCH ×2 (09:03→16:42)
[2017-06-25] MEDS: PREGABALIN 100 MG CAPSULE PO SCH ×3 (09:03→16:41)
[2017-06-25] MEDS: BACLOFEN (10 MG) 10 MG TABLET PO SCH ×3 (09:03→16:41)
[2017-06-25] MEDS: FLUOXETINE HCL 20 MG CAPSULE PO SCH (09:03)
[2017-06-25] MEDS: TIZANIDINE HCL 4 MG TABLET PO SCH ×3 (09:03→16:42)
[2017-06-25] MEDS: DOCUSATE SODIUM 100 MG CAPSULE PO SCH (09:04)
[2017-06-25] MEDS: IV NS 0.9% 1,000 ML IV PRN ×2 (10:21)
[2017-06-25 12:00] VITALS: BP 107/56
--- NOTE | 2017-06-25 15:00 | NUR ---
RN NOTES PT WANTS TO BE DISCHARGE WITH [facility] MAIER CREDIT PRODUCT ANALYST NOTIFIED , R WRIST H/L DISCONTINUED, DISCHARGE INSTRUCTION GIVEN , PT [id number] UNDERSTANDING , PT REFUSED TO HAVE HER SACRUM CHECKED , SHE STATED HAS NO SKIN ISSUE WITH HER BUTTOCKS.
[2017-06-25 16:00] VITALS: BP 141/69
[2017-06-25 16:11] LABS: INR 2.51 (0.87-1.13); PROTHROMBIN TIME 26.3 SECS (9.5-12.7)
[2017-06-25] MEDS: CEFTRIAXONE 1 G in IV D5W 50 ML IV SCH (16:41)
[2017-06-25] MEDS: WARFARIN SODIUM 5 MG TABLET PO SCH (16:42)
--- NOTE | 2017-06-25 18:59 | NUR ---
RN NOTES REPORT GIVEN TO EMT PERSONAL ,PT LEFT THE FLOOR TO MAIN ENTRANCE ACCOMPANIED BY EMT IN STABLE .
== END 2017-06-25 18:52 | DRG 872 ==
LOC: ER 14:53 → TELE-TD 17:45 → MEDSG1 06-23 11:16
PROVIDERS: ADMIT Nurse Practitioner Acute Care; ATTEND Nurse Practitioner Acute Care
DX: A41.9 Sepsis, unspecified organism (principal); D68.59 Other primary thrombophilia; G20 Parkinson's disease; E87.1 Hypo-osmolality and hyponatremia; G35 Multiple sclerosis; I95.9 Hypotension, unspecified; N39.0 Urinary tract infection, site not specified; B96.20 Unspecified Escherichia coli [E. coli] as the cause of diseases classified elsewhere; E86.1 Hypovolemia; E78.5 Hyperlipidemia, unspecified; E87.6 Hypokalemia; G89.4 Chronic pain syndrome; F32.9 Major depressive disorder, single episode, unspecified; I10 Essential (primary) hypertension; K21.9 Gastro-esophageal reflux disease without esophagitis; M81.0 Age-related osteoporosis without current pathological fracture; Z79.01 Long term (current) use of anticoagulants; Z79.899 Other long term (current) drug therapy; Z86.718 Personal history of other venous thrombosis and embolism; Z87.440 Personal history of urinary (tract) infections; Z74.01 Bed confinement status
CPT/HCPCS: 36415; 71010-TC; 80048-TC; 80061-TC; 80076-TC; 80305; 81000-TC; 83605-TC; 83735-TC; 84100-TC; 84443-TC; 84484-TC; 85025-TC; 85610-TC; 85730-TC; 87040-TC; 87081-TC; 87086-TC; 87186-TC; A4606; J0696; J2405; J7030; J7060; Z7610

== ENCOUNTER 2018-01-03 23:14 | Inpatient (IN) | payer MEDICARE, MEDICAID ==
[~2018-01-03] VITALS: Ht 157.5 cm; Wt 54.9 kg
[~2018-01-03 23:14] MED LIST changes: +DOCU-141 PO; -DOCU-25 PO; -MULT-1168 PO; -PANT40TA4 PO; +PRAM0.253 PO; -SULF1TAB48 PO; +WARF-58 PO; -WARF5TAB6 PO
--- NOTE | 2018-01-03 23:28 | NUR ---
62 YO FEMALE BB SELF. PATIENT IS ALERT AND ORIENTED. PATIENT C/O FEELING WEAK, POOR APPITITE, PATIENT THINKS IT MAY BE A UTI. PATIENT DS TO ER BED, SKIN WARM AND DRY, RESP EVEN AND UNLABORED. PATIENT GOWNED, ON FLOAT REMOVER. AWAITING ORDERS FROM PROVIDER
[2018-01-03] MEDS ORDERED: ONDANSETRON HCL/PF 4 MG/2 ML VIAL ONE (23:55)
[2018-01-04] MEDS ORDERED: ONDANSETRON HCL/PF 4 MG/2 ML VIAL IVP ONE
[2018-01-04 00:08] LABS: BASOPHILS % (AUTO) 0.2 % (0.0-2.0); EOSINOPHILS % (AUTO) 1.3 % (0.0-6.0); HEMATOCRIT 37 % (33-45); HEMOGLOBIN 12.9 g/dL (11.5-14.8); LYMPHOCYTES # (AUTO) 1.2 /CMM (0.8-4.8); LYMPHOCYTES % (AUTO) 20.5 % (20.0-44.0); MEAN CORPUSCULAR HGB CONC 35 g/dl (31.0-36.0); MEAN CORPUSCULAR VOLUME 90 fL (82-100); MONOCYTES # (AUTO) 0.4 /CMM (0.1-1.30); MONOCYTES % (AUTO) 7.7 % (2.0-12.0); NEUTROPHILS % (AUTO) 70.3 % (43.0-81.0); PLATELET COUNT (AUTO) 431 /CMM (150-450); RDW COEFFICIENT OF VARIATION 13.9 (11.5-15.0); RED BLOOD CELL COUNT(AUTO) 4.11 MIL/uL (4.0-5.2); WHITE BLOOD COUNT (AUTO) 5.7 K/uL (4.3-11.0)
[2018-01-04 00:24] LABS: CALCIUM, SERUM 9.4 mg/dL (8.5-10.1); CREATININE 0.4 mg/dL (0.6-1.3); POTASSIUM 3.7 mmol/L (3.5-5.1)
[2018-01-04 00:29] LABS: ALBUMIN 3.6 g/dL (3.4-5.0); BILIRUBIN,DIRECT 0.1 mg/dL (0.0-0.2); BILIRUBIN,TOTAL 0.5 mg/dL (0.2-1.0); TOTAL PROTEIN, SERUM 7.8 g/dL (6.4-8.2)
[2018-01-04] MEDS ORDERED: IV NS 0.9% 1,000 ML BAG IV ONE (00:30)
[2018-01-04 00:57] LABS: INR 1.01 (0.87-1.13)
[2018-01-04 01:09] LABS: APPEARANCE,URINE SL CLOUDY (CLEAR); BILIRUBIN,URINE NEGATIVE (NEGATIVE); BLOOD, URINE 2+ Ery/uL (NEGATIVE); COLOR,URINE YELLOW (YELLOW); KETONES,URINE 1+ (NEGATIVE); LEUKOCYTE ESTERASE ,URINE 2+ (NEGATIVE); NITRITE, URINE NEGATIVE (NEGATIVE); PROTEIN,URINE NEGATIVE (NEGATIVE); UGLUCOSE NEGATIVE (NEGATIVE); UROBILINOGEN,URINE 0.2 EU/dL (0.2)
[2018-01-04 01:28] LABS: BACTERIA,URINE Many /HPF (None Seen); SQUAMOUS EPITHELIAL CELL,UR Few /HPF (None Seen)
[2018-01-04] MEDS ORDERED: PIPERACILLIN /TAZOBACTAM 3.375 G VIAL IV ONE (01:53)
[2018-01-04] MEDS ORDERED: TEMAZEPAM 7.5 MG CAPSULE PO PRN (02:00)
[2018-01-04] MEDS ORDERED: PIPERACILLIN /TAZOBACTAM 3.375 G in IV D5W 50 ML IV ONE ×2 (02:00→02:15)
[2018-01-04] MEDS ORDERED: MAGNESIUM HYDROXIDE 30 ML UDC PO PRN (02:00)
[2018-01-04] MEDS ORDERED: HYDROCODONE/APAP 5/325MG 1 EACH TABLET PO PRN (02:00)
[2018-01-04] MEDS ORDERED: MAG HYDROX/AL HYDROX/SIMETH 30 ML UDC PO PRN (02:00)
[2018-01-04] MEDS ORDERED: ACETAMINOPHEN 325 MG TABLET PO PRN (02:00)
[2018-01-04] MEDS ORDERED: ONDANSETRON HCL/PF 4 MG/2 ML VIAL IVP PRN (02:00)
[2018-01-04 02:05] VITALS: BP 134/64
[2018-01-04] MEDS ORDERED: IV NS 0.9% 1,000 ML IV PRN (03:00)
[2018-01-04 05:01] VITALS: BP_SYST 134; BP_SYST 145; BP_DIAS 64; BP_DIAS 97
[2018-01-04] MEDS ORDERED: CEFTRIAXONE 1 G VIAL ONE (05:44)
[2018-01-04] MEDS: CEFTRIAXONE 1 G in IV D5W 50 ML IV SCH (05:48)
--- NOTE | 2018-01-04 06:38 | NUR ---
DREDGING INSPECTOR NOTES AWAKE & RESPONSIVE. NOT IN ANY DISTRESS. NO SOB NOTED. DENIES ANY PAIN OR DISCOMFORT AT THIS TIME. ON TELE SR @ 79 WITH IVF INFUSING WELL. AM CARE DONE. MONITORED ACCORDINGLY. CALL LIGHT WITHIN REACH. BED IN LOWEST POSITION. SR UP X 3 FOR SAFETY. WILL ENDORSE TO NEXT SHIFT.
[2018-01-04 06:48] LABS: MAGNESIUM 1.9 mg/dL (1.8-2.4); PHOSPHORUS 3.6 mg/dL (2.5-4.9)
[2018-01-04] MEDS ORDERED: FURO20TA4 PO (07:57)
[2018-01-04] MEDS ORDERED: RIVA10TA PO (07:57)
[2018-01-04] MEDS ORDERED: BACL20TA PO (07:57)
[2018-01-04] MEDS ORDERED: HYDR12.5 PO (07:57)
[2018-01-04] MEDS ORDERED: ZOLP10TA6 PO (07:58)
[2018-01-04 08:00] VITALS: BP 145/91
--- NOTE | 2018-01-04 08:10 | NUR ---
RN NOTES PATIENT A/OX4, BREATHING EVEN AND UNLABORED, NO DISTRESS NOTED, DENIES PAIN AT THIS TIME, NEEDS ATTENDED AND MET, CALL LIGHT WITHIN REACH, WILL CONTINUE TO MONITOR.
[2018-01-04] MEDS: PANTOPRAZOLE 40 MG VIAL IV SCH (08:49)
[2018-01-04] MEDS ORDERED: ONDANSETRON 4 MG TAB.RAPDIS PO PRN (09:30)
[2018-01-04] MEDS: GLUCERNA SHAKE 237 ML CAN PO SCH ×2 (13:50→16:42)
--- NOTE | 2018-01-04 15:43 | NUR ---
RN NOTES PATIENT AND JOYCE OWEN DISCUSSED CODE STATUS AND PATIENT REQUESTED TO BE DNR/DNI. CODE STATUS ORDERED. PATIENT TURNED AND REPOSITIONED, OFFLOADED BILATERAL HEELS. ON IVF AND ONGOING AND TOLERATING WELL, PATIENT SEEN BY DR. GALLEGO CLUTCH INSPECTOR. NEEDS ATTENDED AND MET, CALL LIGHT WITHIN REACH, WILL CONTINUE TO MONITOR.
[2018-01-04 16:00] VITALS: BP 154/87
[2018-01-04] MEDS: CLOTRIMAZOLE 1% 15 GM TUBE TP SCH (16:42)
[2018-01-04] MEDS ORDERED: Z GUARD REMEDY 2 OZ OINT TP PRN (17:00)
[2018-01-04] MEDS: PRAMIPEXOLE DI-HCL 0.25 MG TABLET PO SCH (17:38)
[2018-01-04] MEDS: TIZANIDINE HCL 4 MG TABLET PO SCH (17:38)
[2018-01-04] MEDS: PREGABALIN 100 MG CAPSULE PO SCH (17:38)
[2018-01-04] MEDS: RIVAROXABAN 10 MG TABLET PO SCH (17:43)
[2018-01-04] MEDS ORDERED: BACLOFEN (10 MG) 10 MG TABLET PO SCH ×2 (18:00→22:00)
--- NOTE | 2018-01-04 18:14 | NUR ---
RN NOTES PATIENT A/OX4, NO DISTRESS NOTED, HOME MEDICATIONS REVIEWED BY JOYCE OWEN NP. MEDICATIONS GIVEN ORDERED, PIV ON LEFT HAND WITH NS @ 50ML/HR INFUSING. MAIER CATH DRAINING WITH YELLOW URINE. TREATMENT ON BOTH FEET DONE, TURNED AND REPOSITIONED EVERY 2 HOURS, KEPT SKIN CLEAN AND DRY, ORDERED Z-GUARD FOR SKIN MANAGEMENT. ALL NEEDS ATTENDED AND MET, CALL LIGHT WITHIN REACH, WILL ENDORSE TO RENAL SOCIAL WORKER FOR PRIETO.
--- NOTE | 2018-01-04 19:24 | NUR ---
MS RN NOTES: RECEIVED PT IN BED AND IS AWAKE. PT IS A/OX4. PT IS ON ROOM AIR. PT HAS IV ON L HAND AND IS BEING INFUSED WITH NS AT 50ML/HR. PT HAS F/C AND IS ATTACHED TO DRAINAGE BAG WITH YELLOW URINE DRAINING. CALL LIGHT WITHIN PT'S REACH. BED KEPT IN LOW, LOCKED POSITION, AND SIDE RAILS X 2UP. WILL CONTINUE TO MONITOR PT.
[2018-01-04 20:00] VITALS: BP 147/92
[2018-01-04] MEDS: IV NS 0.9% 1,000 ML IV PRN (21:06)
--- NOTE | 2018-01-04 23:08 | NUR ---
MS RN NOTES: JASON DIAZ ON FLOOR. INFORMED HIM THAT UPON GIVING PT BACLOFEN 10MG EARLIER TONIGHT, SHE SAID THAT SHE TAKES 60MG AT NIGHT. PER FABIANO DIAZ, OK TO GIVE BACLOFEN 60MG TOMORROW NIGHT.
[2018-01-04] MEDS: ZOLPIDEM TARTRATE 10 MG TABLET PO PRN (23:09)
--- NOTE | 2018-01-04 23:09 | NUR ---
MS RN NOTES: PT REQUESTED FOR AMBIEN 10MG. PT WAS ADMINISTERED 10MG PO. WILL CONTINUE TO MONITOR PT.
[2018-01-05] MEDS ORDERED: CEFTRIAXONE 1 G VIAL ONE (04:39)
[2018-01-05] MEDS: CEFTRIAXONE 1 G in IV D5W 50 ML IV SCH (04:43)
--- NOTE | 2018-01-05 06:22 | NUR ---
MS RN CLOSING NOTES: ALL NEEDS WERE ATTENDED AND ANTICIPATED FOR. PT KEPT CLEAN, DRY, AND COMFORTABLE. PT ON ROOM AIR AND TOLERATING WELL. PT RESTING IN BED COMFORTABLY. IV REMAINS INTACT AND IS BEING INFUSED WITH IV NS 50ML/HR. CALL LIGHT WITHIN PT'S REACH. BED KEPT IN LOW, LOCKED POSITION, AND SIDE RAILS X 2UP. WILL ENDORSE TO AM NURSE FOR PRIETO.
[2018-01-05 06:35] LABS: BASOPHILS % (AUTO) 0.4 % (0.0-2.0); EOSINOPHILS % (AUTO) 1.3 % (0.0-6.0); HEMATOCRIT 36 % (33-45); HEMOGLOBIN 12.2 g/dL (11.5-14.8); LYMPHOCYTES # (AUTO) 2.1 /CMM (0.8-4.8); MEAN CORPUSCULAR HGB CONC 34 g/dl (31.0-36.0); MEAN CORPUSCULAR VOLUME 92 fL (82-100); MONOCYTES # (AUTO) 0.6 /CMM (0.1-1.30); MONOCYTES % (AUTO) 10.6 % (2.0-12.0); NEUTROPHILS % (AUTO) 51.7 % (43.0-81.0); PLATELET COUNT (AUTO) 376 /CMM (150-450); RDW COEFFICIENT OF VARIATION 13.8 (11.5-15.0); RED BLOOD CELL COUNT(AUTO) 3.93 MIL/uL (4.0-5.2); WHITE BLOOD COUNT (AUTO) 5.8 K/uL (4.3-11.0)
[2018-01-05 06:58] LABS: CALCIUM, SERUM 8.7 mg/dL (8.5-10.1); CREATININE 0.3 mg/dL (0.6-1.3); POTASSIUM 3.3 mmol/L (3.5-5.1)
[2018-01-05 07:00] LABS: THYROID STIMULATING HORMONE 1.464 uIU/mL (0.358-3.74)
[2018-01-05 08:00] VITALS: BP 166/98
[2018-01-05] MEDS ORDERED: BISACODYL SUPP (10 MG) 10 MG/SUPP.RECT SUPP.RECT RC ONE (10:00)
[2018-01-05] MEDS ORDERED: POTASSIUM CHLORIDE 20 MEQ TAB.PRT.SR PO ONE (10:00)
[2018-01-05] MEDS: PANTOPRAZOLE 40 MG VIAL IV SCH (10:49)
[2018-01-05] MEDS: FLUOXETINE HCL 20 MG CAPSULE PO SCH (10:49)
[2018-01-05] MEDS: BACLOFEN (10 MG) 10 MG TABLET PO SCH (10:50)
[2018-01-05] MEDS: DOCUSATE SODIUM 100 MG CAPSULE PO SCH ×2 (10:50→18:31)
[2018-01-05] MEDS: TIZANIDINE HCL 4 MG TABLET PO SCH ×2 (10:50→18:31)
[2018-01-05] MEDS: MULTIVITAMINS,THERAGRAN 1 UDTAB TABLET PO SCH (10:51)
[2018-01-05] MEDS: PRAMIPEXOLE DI-HCL 0.25 MG TABLET PO SCH ×2 (10:54→18:31)
[2018-01-05] MEDS: GLUCERNA SHAKE 237 ML CAN PO SCH ×3 (10:54→18:35)
[2018-01-05] MEDS: PREGABALIN 100 MG CAPSULE PO SCH ×2 (10:54→18:35)
[2018-01-05] MEDS: CLOTRIMAZOLE 1% 15 GM TUBE TP SCH ×2 (11:11→18:30)
[2018-01-05] MEDS: Z GUARD REMEDY 2 OZ OINT TP SCH (11:14)
[2018-01-05 16:00] VITALS: BP 134/86
[2018-01-05] MEDS ORDERED: BACLOFEN (10 MG) 10 MG TABLET PO SCH (18:00)
--- NOTE | 2018-01-05 18:00 | NUR ---
NO PRNS GIVEN PT. STATUS QUO.VS STABLE.
[2018-01-05] MEDS: RIVAROXABAN 10 MG TABLET PO SCH (18:32)
--- NOTE | 2018-01-05 19:00 | NUR ---
MS RN INITIAL NOTES: Patient received in bed, sitting up. Alert, oriented x 4. Breathing even and unlabored. not in distress. no complaints of discomfort as of this time. Peripheral IV infusing well. Folr=ey cath in place, draining clear, yellow urine. Call العراقي within reach. Bed in low locked position. Patient stable as endorsed by the third shift lieutenant RN.
[2018-01-05 20:00] VITALS: BP 140/90
[2018-01-05 20:21] VITALS: BP 140/90
[2018-01-05] MEDS: ZOLPIDEM TARTRATE 10 MG TABLET PO PRN (23:23)
--- NOTE | 2018-01-05 23:25 | NUR ---
MS RN NOTES: Patient requested ambien to help her sleep; given as ordered
[2018-01-06] MEDS: IV NS 0.9% 1,000 ML IV PRN (02:24)
[2018-01-06] MEDS: CEFTRIAXONE 1 G in IV D5W 50 ML IV SCH (04:07)
--- NOTE | 2018-01-06 06:39 | NUR ---
MS RN NOTES: Patient sitting up in bed; alert, oriented x 4. Breathing even and unlabored. Not in any distress. Peripheral IV fluid infusing at 50mL/hr. Cr catheter in place, draining 800mL of clear, yellow urine. No complaints of pain or discomfort. All needs attended to. All due medications given. Will endorse continuity of care to morning shift RN.
[2018-01-06 06:50] LABS: BASOPHILS # (AUTO) 0.1 /CMM (0.0-0.2); BASOPHILS % (AUTO) 1.1 % (0.0-2.0); HEMATOCRIT 35 % (33-45); LYMPHOCYTES # (AUTO) 1.9 /CMM (0.8-4.8); MEAN CORPUSCULAR HGB CONC 34 g/dl (31.0-36.0); MEAN CORPUSCULAR VOLUME 92 fL (82-100); MONOCYTES # (AUTO) 0.6 /CMM (0.1-1.30); MONOCYTES % (AUTO) 11.1 % (2.0-12.0); NEUTROPHILS # (AUTO) 2.4 /CMM (1.8-8.9); NEUTROPHILS % (AUTO) 47.8 % (43.0-81.0); PLATELET COUNT (AUTO) 378 /CMM (150-450); RDW COEFFICIENT OF VARIATION 14.1 (11.5-15.0); RED BLOOD CELL COUNT(AUTO) 3.84 MIL/uL (4.0-5.2); WHITE BLOOD COUNT (AUTO) 5.1 K/uL (4.3-11.0)
[2018-01-06 06:58] LABS: CALCIUM, SERUM 8.9 mg/dL (8.5-10.1); CREATININE 0.3 mg/dL (0.6-1.3); POTASSIUM 3.4 mmol/L (3.5-5.1)
[2018-01-06] MEDS: PANTOPRAZOLE 40 MG VIAL IV SCH (07:30)
[2018-01-06] MEDS ORDERED: ALENDRONATE 70 MG TABLET PO SCH (07:30)
[2018-01-06 08:00] VITALS: BP 166/97
[2018-01-06] MEDS: DOCUSATE SODIUM 100 MG CAPSULE PO SCH ×2 (08:29→16:41)
[2018-01-06] MEDS: CLOTRIMAZOLE 1% 15 GM TUBE TP SCH ×2 (08:30→16:53)
[2018-01-06] MEDS: GLUCERNA SHAKE 237 ML CAN PO SCH ×3 (08:30→16:54)
[2018-01-06] MEDS: Z GUARD REMEDY 2 OZ OINT TP SCH (08:30)
[2018-01-06] MEDS: PREGABALIN 100 MG CAPSULE PO SCH ×2 (08:30→16:41)
[2018-01-06] MEDS: TIZANIDINE HCL 4 MG TABLET PO SCH ×2 (08:30→16:41)
[2018-01-06] MEDS: FLUOXETINE HCL 20 MG CAPSULE PO SCH (08:30)
[2018-01-06] MEDS: BACLOFEN (10 MG) 10 MG TABLET PO SCH (08:30)
[2018-01-06] MEDS: MULTIVITAMINS,THERAGRAN 1 UDTAB TABLET PO SCH (08:30)
[2018-01-06] MEDS: PRAMIPEXOLE DI-HCL 0.25 MG TABLET PO SCH ×2 (08:30→16:41)
[2018-01-06] MEDS ORDERED: CEPH-570 PO (09:55)
[2018-01-06] MEDS ORDERED: DOCU-141 PO (09:55)
[2018-01-06] MEDS ORDERED: POTASSIUM CHLORIDE 20 MEQ TAB.PRT.SR PO ONE (10:00)
[2018-01-06 16:00] VITALS: BP 142/83
[2018-01-06] MEDS: RIVAROXABAN 10 MG TABLET PO SCH (16:53)
--- NOTE | 2018-01-06 17:39 | NUR ---
RN NOTES PT WAS DISCHARGED TO [facility] ST[facility] CONDITION. PT WAS GIVEN DISCHARGED INSTRUCTIONS AND EDUCATION. PT WAS GIVEN NEW PRESCRIPTION AND TOLD TO FOLLOW UP WITH PCP WITHIN 1-2 WEEKS OF DISCHARGE. PT VERBALIZED UNDERSTANDING AND STATED SHE ALREADY HAS AN APPOINTMENT WITH HER PCP. IV AND ID BAND WERE REMOVED AND BELONGINGS WERE RETURNED TO PT. DISCHARGE PAPERS WERE SIGNED BY PT AND EMT WAS GIVEN REPORT BEFORE TRANSPORTING PT TO FACILITY.
== END 2018-01-06 18:00 | DRG 690 ==
LOC: ER 23:17 → TELE 01-04 02:02 → MED 01-04 08:27
PROVIDERS: ADMIT Nurse Practitioner Acute Care; ATTEND Nurse Practitioner Acute Care
DX: N39.0 Urinary tract infection, site not specified (principal); E87.1 Hypo-osmolality and hyponatremia; K21.9 Gastro-esophageal reflux disease without esophagitis; I10 Essential (primary) hypertension; G89.4 Chronic pain syndrome; B96.20 Unspecified Escherichia coli [E. coli] as the cause of diseases classified elsewhere; E87.6 Hypokalemia; G35 Multiple sclerosis; K59.00 Constipation, unspecified; M81.0 Age-related osteoporosis without current pathological fracture; Z86.718 Personal history of other venous thrombosis and embolism; Z87.440 Personal history of urinary (tract) infections; R32 Unspecified urinary incontinence; B35.1 Tinea unguium; S90.32XA Contusion of left foot, initial encounter; S90.31XA Contusion of right foot, initial encounter; X58.XXXA Exposure to other specified factors, initial encounter; Y93.9 Activity, unspecified; Y92.89 Other specified places as the place of occurrence of the external cause; S90.122A Contusion of left lesser toe(s) without damage to nail, initial encounter; B35.9 Dermatophytosis, unspecified; T50.2X5A Adverse effect of carbonic-anhydrase inhibitors, benzothiadiazides and other diuretics, initial encounter; R53.1 Weakness; Z99.3 Dependence on wheelchair
CPT/HCPCS: 36415; 71045-TC; 74018; 80048-TC; 80061-TC; 80076-TC; 81000-TC; 82746; 83735-TC; 83935-TC; 84100-TC; 84300-TC; 84443-TC; 85025-TC; 85730-TC; 87081-TC; 87086-TC; 87186-TC; A4606; C9113; J0696; J2405; J2543; J7030; J7060; Z7610

== ENCOUNTER 2019-08-27 11:20 | Inpatient (IN) | payer MEDICARE, MEDICAID ==
[~2019-08-27] VITALS: Ht 157.5 cm; Wt 59.0 kg
[2019-08-27] VITALS (8 sets, daily range): BP systolic 50–138; BP diastolic 26–86
[~2019-08-27 11:20] MED LIST changes: -ALEN70TA45 PO; +ALEN70TA6 PO; +CEPH-570 PO; +FURO20TA4 PO; +RIVA10TA PO; -TIZA4TAB4 PO; +TIZA4TAB5 PO; -WARF-58 PO; +ZOLP10TA6 PO
[2019-08-27] MEDS ORDERED: SUCCINYLCHOLINE CHLORIDE 20 MG/ML VIAL IV ONE (11:24)
[2019-08-27] MEDS ORDERED: ETOMIDATE 2 MG/ML VIAL IV ONE (11:24)
[2019-08-27] MEDS ORDERED: ROCURONIUM BROMIDE 50 MG/5 ML IV ONE (11:24)
--- NOTE | 2019-08-27 11:40 | NUR ---
bibra60, from [facility], altered and hypotensive. Patient on NRB mask at 15lpm with spo2 of 98%. Patient unresponsive to stimuli, snoring, changed into gown, connected to ekg monitor tech. Patient covered with feces, pericare provided, skin care rendered. Cr catheter present from admission.
--- NOTE | 2019-08-27 11:41 | NUR ---
called Leeanne (niece) and unable to contact and left a message in regards with patient condition.
--- NOTE | 2019-08-27 11:45 | NUR ---
PATIENT RECEIVED NO POLST UPON ADMISSION. PER EMS REPORT, PATIENT IS FULL CODE.
[2019-08-27] MEDS ORDERED: NALOXONE PREFILLED SYRINGE 2 MG/2 ML SYRINGE ONE (11:46)
[2019-08-27 11:51] LABS: BASOPHILS # (AUTO) 0.1 /CMM (0.0-0.2); BASOPHILS % (AUTO) 0.6 % (0.0-2.0); HEMATOCRIT 33 % (33-45); HEMOGLOBIN 10.9 g/dL (11.5-14.8); LYMPHOCYTES # (AUTO) 0.6 /CMM (0.8-4.8); LYMPHOCYTES % (AUTO) 5.2 % (20.0-44.0); MEAN CORPUSCULAR HGB CONC 34 g/dl (31.0-36.0); MEAN CORPUSCULAR VOLUME 91 fL (82-100); MONOCYTES # (AUTO) 0.3 /CMM (0.1-1.30); MONOCYTES % (AUTO) 3.1 % (2.0-12.0); NEUTROPHILS # (AUTO) 9.6 /CMM (1.8-8.9); NEUTROPHILS % (AUTO) 91.1 % (43.0-81.0); PLATELET COUNT (AUTO) 265 /CMM (150-450); RED BLOOD CELL COUNT(AUTO) 3.55 MIL/uL (4.0-5.2); WHITE BLOOD COUNT (AUTO) 10.5 K/uL (4.3-11.0)
--- NOTE | 2019-08-27 11:57 | NUR ---
RIGHT WRIST G18 EPINEPHRINE MIXED WITH 1000ML OF NS DRIP STARTED AT 5ML/MIN IV START TIME: 1157 END TIME: 1217 BP IMPROVED 157/98 HR 106
[2019-08-27] MEDS ORDERED: KETAMINE HCL (500MG/10ML) 50 MG/ML VIAL ONE (11:58)
[2019-08-27] MEDS ORDERED: NOREPINEPHRINE 8 MG in IV D5W 500 ML IV ONE (12:00)
[2019-08-27] MEDS ORDERED: KETAMINE HCL(200MG/20ML) 10 MG/ML VIAL IV ONE (12:00)
[2019-08-27] MEDS ORDERED: PIPERACILLIN /TAZOBACTAM 3.375 G in IV D5W 50 ML IV ONE (12:00)
[2019-08-27] MEDS ORDERED: IV NS 0.9% 1,000 ML BAG IV ONE (12:00)
[2019-08-27] MEDS ORDERED: VANCOMYCIN HCL 1 GM in IV D5W 260 ML IV ONE (12:00)
[2019-08-27] MEDS ORDERED: ROCURONIUM BROMIDE 100 MG/10 ML VIAL IV ONE (12:00)
--- NOTE | 2019-08-27 12:00 | NUR ---
CALLED NURSING SUP FOR ICU BED.
--- NOTE | 2019-08-27 12:11 | NUR ---
PATIENT INTUBATED 25CM AT THE LIP, ET TUBE SIZE 7.5, BILATERAL CHEST RISE, + COLOR CHANGE
[2019-08-27 12:16] LABS: CALCIUM, SERUM 8.7 mg/dL (8.5-10.1); CARBON DIOXIDE 26 mmol/L (21-32); CHLORIDE 100 mmol/L (98-107); CREATININE 1.3 mg/dL (0.6-1.3); GLUCOSE 109 mg/dL (74-106); POTASSIUM 3.6 mmol/L (3.5-5.1); SODIUM SERUM 133 mmol/L (136-145); UREA NITROGEN, BLOOD 20 mg/dL (7-18)
[2019-08-27] MEDS ORDERED: SENN-261 PO (12:18)
[2019-08-27] MEDS ORDERED: TRAZ-257 PO (12:18)
[2019-08-27] MEDS ORDERED: AMOX1TAB16 PO (12:19)
[2019-08-27] MEDS ORDERED: HYDR12.55 PO (12:19)
[2019-08-27 12:21] LABS: ALANINE AMINOTRANSFERASE 248 U/L (12-78); ALBUMIN 2.1 g/dL (3.4-5.0); ALKALINE PHOSPHATASE 67 U/L (46-116); ASPARTATE AMINOTRANSFERASE 276 U/L (15-37); BILIRUBIN,DIRECT 0.2 mg/dL (0.0-0.2); BILIRUBIN,TOTAL 0.5 mg/dL (0.2-1.0); TOTAL PROTEIN, SERUM 5.9 g/dL (6.4-8.2)
--- NOTE | 2019-08-27 12:27 | NUR ---
NURSING SUP GAVE ICU BED 252.
--- NOTE | 2019-08-27 12:45 | NUR ---
DR. MCKEON AT BEDSIDE FOR EVAL
--- NOTE | 2019-08-27 12:56 | NUR ---
received a call from Leeanne santacruz) from [facility] and made aware of patient condition and will fax pertinent record regarding the patient.
[2019-08-27 13:04] LABS: APPEARANCE,URINE Cloudy (CLEAR); BILIRUBIN,URINE Negative (NEGATIVE); BLOOD, URINE Moderate Ery/uL (NEGATIVE); COLOR,URINE Yellow (YELLOW); KETONES,URINE Negative (NEGATIVE); LEUKOCYTE ESTERASE ,URINE Large (NEGATIVE); NITRITE, URINE Positive (NEGATIVE); PROTEIN,URINE 100 mg/dl (NEGATIVE); UGLUCOSE Negative (NEGATIVE); UROBILINOGEN,URINE 0.2 EU/dL (0.2)
--- NOTE | 2019-08-27 13:06 | NUR ---
report given to Sara DHALIWAL.
[2019-08-27 13:07] LABS: BACTERIA,URINE 1+ /HPF (None Seen); SQUAMOUS EPITHELIAL CELL,UR Few /HPF (None Seen)
[2019-08-27 13:19] LABS: ABG OXYGEN SATURATION 97.1 % (92.0-98.5); ABG PCO2 32.9 mmHg (35.0-45.0); ABG PH 7.349 (7.350-7.450); ABG PO2 106.2 mmHg (75.0-100.0); AaDO2 213.3 mmHg; COHb 0.3 % (0.5-1.5); MetHb 0.3 % (0.0-1.5); O2Hb 96.5 % (94.0-97.0); PEEP,BG 0 cm H2O; SITE, ABG Left Radial; VENT MODE, BG AC 16 500 50% +0; VT, ABG 500 mL
--- NOTE | 2019-08-27 13:52 | NUR ---
PATIENT TRANSFERRED TO ROOM 252 VIA ACLS PROTOCOL, WITH RT EN ROUTE. PATIENT ENDORSED TO JOSE DHALIWAL. IV NS AND VANCOMYCIN IV STILL INFUSING.
[2019-08-27] MEDS ORDERED: NALOXONE PREFILLED SYRINGE 2 MG/2 ML SYRINGE IV ONE (14:00)
[2019-08-27] MEDS ORDERED: IV NS 0.9% 1,000 ML IV PRN (14:12)
[2019-08-27] MEDS ORDERED: ACETAMINOPHEN 650 MG/SUPP.RECT RC PRN (14:30)
[2019-08-27] MEDS ORDERED: Z GUARD REMEDY 2 OZ OINT TP PRN (14:30)
[2019-08-27] MEDS ORDERED: ONDANSETRON HCL/PF 4 MG/2 ML VIAL IVP PRN (14:30)
[2019-08-27] MEDS ORDERED: EPINEPHRINE (1:10,000) SYRINGE 1 MG/10 ML DISP.SYRIN IV ONE (14:30)
[2019-08-27] MEDS ORDERED: ENOXAPARIN SODIUM 40 MG/0.4 ML DISP.SYRIN SQ SCH (14:30)
[2019-08-27] MEDS ORDERED: NOREPINEPHRINE 8 MG in IV D5W 500 ML IV PRN (14:30)
[2019-08-27] MEDS ORDERED: DC PROPOFOL WHEN EXTUBATED XX PRN (15:00)
[2019-08-27] MEDS ORDERED: FEE PK DOSING 1 MIN EA MC ONE (15:39)
--- NOTE | 2019-08-27 15:40 | NUR ---
ICU/RN: Extensive discussion with SANDRA Wolfe. Pt s/p extubation per ISAÍAS (delivered to ICU after pt admission). Per SANDRA "We were just in the hospital a few days ago, and we discussed what she wanted after discharge. There's no more quality of life for her and she doesn't want any more agressive treatment. No more meds, anything." NEIDAOA informed that there are no s/s pain or distress, pt kept comfortable. Eliu Cabello, JASON made aware; will hold meds and further aggressive treatment. SANDRA Fallon requested to be informed of pt expiration.
--- NOTE | 2019-08-27 17:10 | NUR ---
ICU/RN: SANDRA Agosto, mortuary/cremation arrangements as follows: Call Lauren Count Includes [facility] [phone] ( ) upon pt expiration with pt's Membership ID # [id number].
--- NOTE | 2019-08-27 17:40 | NUR ---
ICU/RN: Pt transferred to med/surg 202. DPOA informed of transfer.
[2019-08-27] MEDS ORDERED: PIPERACILLIN /TAZOBACTAM 3.375 G in IV D5W 50 ML IV SCH (18:00)
--- NOTE | 2019-08-27 18:06 | NUR ---
RN NOTES RECEIVED PT FROM ICU VIA BED. PT IS OBTUNDED. ON SUPPLEMENTARY OXYGEN AT 15LPM VIA NON REBREATHER MASK. PT ON COMFORT MEASURES ONLY, POST DNR/DNI. PIV TO LAC G18 AND R WRIST G18, FLUSHED WITH NS, INTATC AND OPERATIONAL. FC IN PLACE WITH YELLOWISH URINE IN THE BAG. VITALS TAKEN AND RECORDED. PT KEPT COMFORTABLE IN BED. PT'S BED IN LOWEST, LOCKED POSITION X3. WILL CONTINUE PLAN OF CARE.
--- NOTE | 2019-08-27 19:00 | NUR ---
MS RN NOTE RECEIVED PT IN STABLE CONDITION, ON COMFORT MEASURES. VSS. NO INDICATION OF DISTRESS. ALL CURRENT NEEDS ATTENDED TO. SAFETY MEASURES IN PLACE. ISOLATION MEASURES IN PLACE. WILL CONT. TO MONITOR.
--- NOTE | 2019-08-28 06:25 | NUR ---
MS RN NOTE PT REMAINS IN STABLE CONDITION, ON COMFORT MEASURES. VSS. NO INDICATION OF DISTRESS. ALL CURRENT NEEDS ATTENDED TO. SAFETY MEASURES IN PLACE. ISOLATION MEASURES IN PLACE. WILL CONT. TO MONITOR AND ENDORSE TO NEXT SHIFT FOR PRIETO.
[2019-08-28] MEDS ORDERED: VANCOMYCIN 1 GM in IV NS 0.9% 250 ML IV SCH (07:00)
[2019-08-28 08:00] VITALS: BP 86/56
[2019-08-28] MEDS ORDERED: PANTOPRAZOLE 40 MG VIAL IV SCH (09:00)
--- NOTE | 2019-08-28 09:22 | NUR ---
RN NOTES Comfort measures continued. Pt vitals remain stable. Update provided to family. Will cont to monitor.
[2019-08-28 16:00] VITALS: BP 108/58
--- NOTE | 2019-08-28 19:01 | NUR ---
MS RN OPENING NOTES: RECEIVED PATIENT IN BED, VERY LETHARGIC, NON VERBAL, ON NON REBREATHER MASK AT 6L/MIN O2 SATING AT 98%. HR=89. ON ISOLATION PRECAUTION, SIGN ON THE DOOR PLACED AND CART AVAILABLE. WITH MAIER CATHETER INTACT AND DRAINING TO AN PARVEEN COLORED URINE. ON MORPHINE DRIP AT 2.5MG/HR. PATIENT IS COMFORTABLE AT THIS TIME. NOT MOANING.
--- NOTE | 2019-08-28 19:47 | NUR ---
PATIENT'S NIECE GARETT JUST CALLED AND UPDATED THE STATUS OF THE PATIENT.
[2019-08-28 20:00] VITALS: BP 96/61
--- NOTE | 2019-08-28 20:40 | NUR ---
V/S TAKEN BY JAYESH DOCKERY, AND RECORDED, AFEBRILE. BP=96/61.
--- NOTE | 2019-08-29 06:25 | NUR ---
MS RN CLOSING NOTES: PATIENT STILL WITH THE MORPHINE IV DRIP WITH THE SAME RATE RUNNING AT 2.5MG/HOUR. PATIENT IS COMFORTABLE DURING THE SHIFT. NO MOANING. MAIER CATHETER IS INTACT. BED IN LOWEST AND LOCKED POSITION. HOB ELEVATED FOR COMFORT. WITH NON REBREATHER MASK AT 6L/MIN. ISOLATION OBSERVED AT ALL TIMES.
[2019-08-29 06:31] LABS: CALCIUM, SERUM 8.6 mg/dL (8.5-10.1); CREATININE 0.7 mg/dL (0.6-1.3); POTASSIUM 3.5 mmol/L (3.5-5.1)
--- NOTE | 2019-08-29 07:29 | NUR ---
MS RN OPENING NOTES RECEIVED PATIENT IN BED WITH EYES OPEN AND NON-VERBAL. HOB ELEVATED. NO FACIAL GRIMACES OR MOANING NOTED AT THIS TIME. PT ON COMFORT CARE MEASURES STATUS. DROPLET PRECAUTIONS MAINTAINED FOR FLU. PT ON NON REBREATHER MASK @ 6LPM, TOLERATING WELL. IV ACCESS ON LAC INTACT AND PATENT, MORPHINE DRIP AT 2.5MG/HR INFUSING AT THIS TIME, NO S/S OF INFILTRATIONS NOTED. SAFETY MEASURES IN PLACE: CALL LIGHT WITHIN REACH. BED IN LOWEST AND LOCKED POSITION WITH SR UP X2. WILL CONTINUE TO MONITOR
[2019-08-29 08:00] VITALS: BP 117/54
[2019-08-29 16:00] VITALS: BP 101/57
[2019-08-29] MEDS ORDERED: KEY,NONCONTROL,TO KEEP IN PYXI 1 EA MC ONE (18:30)
--- NOTE | 2019-08-29 18:55 | NUR ---
RN DISCHARGED NOTES PATIENT DISCHARGED TO [facility] WITH STABLE VITAL SIGNS. PT IS NON-VERBAL AND OPEN EYES TO PAIN STIMULI. COMFORT MEASURES PROVIDED. PHOTOS OF SKIN ISSUES TAKEN AND FILED IN CHART. TWO BRACELET ON B/L ARMS KEPT IN PLACE, PHOTOS TAKEN. IV ACCESS REMOVED WITH NO BLEEDING NOTED, DRY DRESSING APPLIED. DISCHARGED INSTRUCTIONS/REPORT GIVEN TO WHITNEY OF [facility]. SANDRA RUSSELL CALLED AND INFORMED OF DISCHARGE. DISCHARGE FOLDER HANDED TO EMS. MORPHINE DRIP DISCONTINUED. PT LEFT UNIT @ 1835 VIA GURNEY WITH NON REBREATHER MASK AT 6LPM ACCOMPANIED BY 2 EMS.
== END 2019-08-29 18:25 | disposition hospice, home (50) | DRG 871 ==
LOC: ER 11:23 → ICU 13:54 → MEDSG2 17:28
PROVIDERS: ADMIT Hospitalist; ATTEND Registered Nurse
PROC: 5A1935Z Respiratory Ventilation, Less than 24 Consecutive Hours (ICD-10-PCS; principal; 2019-08-27)
PROC: 0BH18EZ Insertion of Endotracheal Airway into Trachea, Via Natural or Artificial Opening Endoscopic (ICD-10-PCS; principal; 2019-08-27)
DX: A41.9 Sepsis, unspecified organism (principal); J96.01 Acute respiratory failure with hypoxia; N17.0 Acute kidney failure with tubular necrosis; R65.21 Severe sepsis with septic shock; E43 Unspecified severe protein-calorie malnutrition; G92 Toxic encephalopathy; J10.00 Influenza due to other identified influenza virus with unspecified type of pneumonia; J18.9 Pneumonia, unspecified organism; N39.0 Urinary tract infection, site not specified; G89.4 Chronic pain syndrome; I10 Essential (primary) hypertension; K21.9 Gastro-esophageal reflux disease without esophagitis; Z66 Do not resuscitate; Z79.01 Long term (current) use of anticoagulants; Z86.718 Personal history of other venous thrombosis and embolism; Z87.440 Personal history of urinary (tract) infections; D64.9 Anemia, unspecified; M81.0 Age-related osteoporosis without current pathological fracture; G35 Multiple sclerosis; F32.9 Major depressive disorder, single episode, unspecified; E88.09 Other disorders of plasma-protein metabolism, not elsewhere classified; M62.50 Muscle wasting and atrophy, not elsewhere classified, unspecified site; Z68.23 Body mass index [BMI] 23.0-23.9, adult; Z51.5 Encounter for palliative care; Z79.899 Other long term (current) drug therapy; R40.2413 Glasgow coma scale score 13-15, at hospital admission
CPT/HCPCS: 36415; 36600; 71045-TC; 80048-TC; 80076-TC; 80202-TC; 81000-TC; 82803-TC; 83605-TC; 84484-TC; 85025-TC; 85730-TC; 87040-TC; 87081-TC; 87086-TC; 87186-TC; 94002-TC; A4216; A6403; G0378; J0330; J2274; J2310; J2543; J3370; J3490; J7030; J7040; J7050; J7060